=== PATIENT | female | born 1965 | race Caucasian/White ===

== ENCOUNTER 2020-09-06 11:54 | Emergency (ER) | payer OTHER, SELFPAY ==
--- NOTE | ~2020-09-06 | XR_ITS ---
EXAMINATION: XR tibia fibula LT 2V DATE: 09/06/2020 12:18 INDICATION: Left lower leg pain. TECHNIQUE: 2 views of left tibia and fibula were obtained. COMPARISON: None. FINDINGS: Bone alignment is normal. No fracture. There is mild osteoarthritis of medial compartment o f the knee characterized by tiny marginal osteophytes. IMPRESSION: 1. Mild left knee osteoarthritis. Reviewed, dictated and finalized at location A.
--- NOTE | 2020-09-06 11:59 | ED.EXTPRO ---
HPI - Extremity Problem General Chief complaint: Extremity Problem,Nontraumatic Stated complaint: L LEG SWELLING/FOOT SWELLLING/TOE TURNING PURPLE Time Seen by Provider: 09/06/20 11:59 Source: patient and RN notes reviewed History of Present Illness HPI Narrative: Patient is a 54-year-old female who presents the urgent care with complaints of swollen left lower leg, extending into the left foot, with bruising to the left great toe. Patient states that she noticed the left leg swelling approximately 3 weeks ago and woke up with the bruise great toe this morning. Patient denies of any known injury or fall. States that she has been doing some walking since losing her job not too long ago. Otherwise patient does live a pretty sedentary lifestyle. Denies of any history of blood clots. Denies of recent flying. Denies of any calf pain. Denies of shortness of breath or chest pain. Patient has not done anything [id number] for her symptoms and states that she is having no pain at rest. However with ambulation, reports of pain to the distal tib-fib region. No other acute complaints. No acute distress noted. Patient aware of the plan of care. Some parts of this dictation were generated by voice recognition software and may contain typographical and/or grammatical inaccuracies. Related Data Home Medications Medication Instructions Recorded Confirmed alendronate mg PO 09/06/20 carbamazepine 09/06/20 Allergies Allergy/AdvReac Type Severity Reaction Status Date / Time NKDA Allergy Mild Uncoded 03/25/09 10:19 Review of Systems Review of Systems: Narrative: CONSTITUTIONAL: Denies fever, chills, or sweats. EYES: Denies visual changes, redness, or discharge. ENT: Denies rhinorrhea, congestion, sore throat, or otalgia. CARDIOVASCULAR: Denies chest pain, palpitations, or edema. RESPIRATORY: Denies cough or dyspnea. GASTROINTESTINAL: Denies abdominal pain, nausea, vomiting, or diarrhea. GENITOURINARY: Denies dysuria or hematuria. SKIN: Denies rash or itching. MUSCULOSKELETAL: Reports of left lower extremity swelling with bruised left great toe NEUROLOGIC: Denies headache, numbness, or weakness. All other systems reviewed are negative, except as documented in HPI. [facility] Family History Family History (Updated 11/08/15 @ 23:19 by DOCTOR UNKNOWN) Mother Family history of lung cancer Grandparent Family history of malignant neoplasm of breast Social History Social History Alcohol intake: current Comments At the time of my signature, I reviewed and agree with the nursing past medical, surgical, social, and family history. There is no relevant family history pertinent to the patient complaint. Exam Narrative: Exam Narrative: GENERAL: This is a well-nourished, well-developed patient, in no apparent distress. HEAD: normocephalic, atraumatic. EYES: PERRL. Sclera clear/white. Vision is grossly intact. EARS: External ears normal NOSE: External nose normal with no obvious nasal discharge, nares without redness, no rhinorrhea. THROAT: Mucous membranes moist NECK: Neck supple CARDIOVASCULAR: Regular rate and rhythm without murmurs, gallops, or rubs. RESPIRATORY: Clear to auscultation. Breath sounds equal bilaterally. No wheezes, rales, or rhonchi. SKIN: warm, intact with no suspicious lesions or rash, good texture and turgor. NEURO: awake, alert, and oriented to person, place and time. There were no obvious focal neurologic abnormalities. EXTREMITIES: Right and left calf measuring 13 inches. 1+ dependent edema to left lower extremity/foot. Positive strong left pedal pulse with capillary refill less than 2 seconds. Mild ecchymosis noted to the left great toe without any notable deformity. Negative left Homans' sign. Pain to the left distal tib-fib on foot flexion. Course Vital Signs Vital signs: Vital Signs Temperature 97.1 F L 09/06/20 12:08 Pulse Rate 80 09/06/20 12:08 Respiratory Rate 18 09/06/20 12:08
[2020-09-06 12:08] VITALS: BP 155/77; PULSE 80; RESP 18; TEMP 36.2; O2SAT 99
== END 2020-09-06 12:45 | disposition home or self-care (01) ==
PROVIDERS: Emergency Provider Nurse Practitioner Family
DX: R60.0 Localized edema (principal)
CPT/HCPCS: 73590; 99213; G0463

== ENCOUNTER → 2021-06-07 10:03 | Outpatient (CLI) | payer BC, SELFPAY ==
--- NOTE | ~2021-06-07 | MM_ITS ---
EXAMINATION: MM screening [facility] BI w rloan HISTORY: Screening mammogram, family history of breast cancer in her mother. TECHNIQUE: Craniocaudal and mediolateral oblique 3-D tomosynthesis images were obtained and synthetic 2-D images were generated. CAD analysis was submitted and interpreted. COMPARISON: 04/10/2019, 02/27/2019, 09/11/2017 BREAST PARENCHYMAL COMPOSITION: There are scattered areas of fibroglandular density. FINDINGS: There is no evidence of suspicious mass, calcification, or architectural distortion to sugg est malignancy in either breast. There has been no suspicious interval change. IMPRESSION: 1. No mammographic evidence of malignancy. 2. Recommend routine screening mammography in one year. BI-RADS Category 1: Negative Reviewed, dictated and finalized at location A. [employer]
== END ==
PROVIDERS: PCP Nurse Practitioner; Visit Provider Nurse Practitioner
DX: Z12.31 Encounter for screening mammogram for malignant neoplasm of breast (principal)
CPT/HCPCS: 77063; 77067

== ENCOUNTER → 2021-07-03 18:06 | Outpatient (CLI) | payer BC, SELFPAY ==
--- NOTE | ~2021-07-03 | DEXA_ITS ---
Bone Density Report Name: YEN HERNANDEZ Age: 55 Sex: Female Ethnicity: White Date of : 1965 Indication: osteopenia; monitoring treatment; height loss; seizure disorder; postmenopausal Referring Provider: BONI, NAOMY Study: Bone densitometry was performed. Exam Date: July 03, 2021 Accession number: [id number] Bone Density: Region BMD T-score Z-score Classification AP Spine (L1-L4) 0.873 -1.6 -0.4 Osteopenia Femoral Neck (Left) 0.713 -1.2 -0.1 Osteopenia Total Hip (Left) 0.801 -1.2 -0.4 Osteopenia Femoral Neck (Right) 0.696 -1.4 -0.3 Osteopenia Total Hip (Right) 0.789 -1.3 -0.5 Osteopenia Total Hip Mean 0.795 -1.3 -0.5 Osteopenia World Health Organization criteria for BMD impression classify patients as: Normal (T-score at or above -1.0), Osteopenia (T-score between -1.0 and -2.5), or Osteoporosis (T-score at or below -2.5). 10-year Fracture Risk: FRAX not reported because: Treated for osteoporosis Previous Exams: Region Exam Age BMD T-score BMD Change BMD Change Date g/cm2 vs Baseline vs Previous AP Spine(L1-L4) 07/03/2021 55 0.873 -1.6 -0.113* -0.102* 02/27/2019 53 0.975 -0.7 -0.011 0.016 05/02/2016 50 0.959 -0.8 -0.027* -0.027* 07/24/2009 43 0.986 -0.6 Total Hip(Left) 07/03/2021 55 0.801 -1.2 -0.026 0.019 02/27/2019 53 0.782 -1.3 -0.045* 0.023 05/02/2016 50 0.759 -1.5 -0.068* -0.068* 07/24/2009 43 0.827 -0.9 Total Hip(Right) 07/03/2021 55 0.789 -1.3 -0.014 0.016 02/27/2019 53 0.772 -1.4 -0.030* 0.003 05/02/2016 50 0.769 -1.4 -0.034* -0.034* 07/24/2009 43 0.803 -1.1 *Denotes significance at 95% confidence level, LSC for AP Spine = 0.022 g/cm2, LSC for Total Hip = 0.027 g/cm2 Clinical Information Provided by Patient: Is being treated for osteoporosis Has used the following medications: Fosamax (i.e. alendronate), Vitamin D, DEPO SHOT Has the following medical conditions: Any Seizure Disorders Patient maximum height was 65 Menopause Age: 50 Drinks caffeinated beverages Onset of menses at age 11 Number of children 0 Missed period for more than 6 months in a row Impression: The patient has low bone mass, based on the Total Spine T-score. The BMD for the AP Spine(L1-L4) decreased, changing by -0.102 since the last DXA exam.
== END ==
PROVIDERS: Visit Provider Nurse Practitioner
DX: M85.88 Other specified disorders of bone density and structure, other site (principal); M85.852 Other specified disorders of bone density and structure, left thigh; M85.851 Other specified disorders of bone density and structure, right thigh
CPT/HCPCS: 77080

== ENCOUNTER → 2022-08-15 11:15 | Outpatient (CLI) | payer SELFPAY ==
--- NOTE | ~2022-08-15 | MM_ITS ---
EXAMINATION: MM screening [facility] BI w rolan HISTORY: Screening mammogram TECHNIQUE: Craniocaudal and mediolateral oblique 3-D tomosynthesis images were obtained and synthetic 2-D images were generated. CAD analysis was submitted and interpreted. COMPARISON: 06/07/2021, 04/10/2019, 02/27/2019 BREAST PARENCHYMAL COMPOSITION: There are scattered areas of fibroglandular density. FINDINGS: No suspicious mass, calcification, or architectural distortion are identified in either amrit ast to suggest malignancy. There has been no suspicious interval change. IMPRESSION: 1. No mammographic evidence of malignancy. 2. Recommend routine screening mammography in one year. BI-RADS Category 1: Negative Reviewed, dictated and finalized at location A.
== END ==
PROVIDERS: PCP Obstetrics & Gynecology Gynecology; Visit Provider Obstetrics & Gynecology Gynecology
DX: Z12.31 Encounter for screening mammogram for malignant neoplasm of breast (principal)
CPT/HCPCS: 77063; 77067

== ENCOUNTER 2023-11-06 10:46 | Outpatient (CLI) | payer BC, SELFPAY ==
--- NOTE | ~2023-11-06 | MM_ITS ---
EXAMINATION: MM screening ursula BI w rolan HISTORY: Screening mammogram, family history of breast cancer in her mother. TECHNIQUE: Craniocaudal and mediolateral oblique 3-D tomosynthesis images were obtained and synthetic 2-D images were generated. CAD analysis was submitted and interpreted. COMPARISON: 08/15/2022, 06/07/2021, 04/10/2019 BREAST PARENCHYMAL COMPOSITION:Not Dense. There are scattered areas of fibroglandular density. FINDINGS: No suspicious mass, calcification, or architectural distortion are identified in either amrit ast to suggest malignancy. There has been no suspicious interval change. IMPRESSION: No mammographic evidence of malignancy. Recommend routine screening mammography in one year. BI-RADS Category 1: Negative Reviewed, dictated and finalized at location .
== END 2023-11-06 10:47 ==
PROVIDERS: PCP Obstetrics & Gynecology Gynecology; Visit Provider Obstetrics & Gynecology Gynecology
DX: Z12.31 Encounter for screening mammogram for malignant neoplasm of breast (principal)
CPT/HCPCS: 77063; 77067

== ENCOUNTER 2024-02-09 11:08 | Emergency (ER) | payer BC, SELFPAY ==
[2024-02-09 11:30] VITALS: BP 113/78; PULSE 70; RESP 16; TEMP 36.6; O2SAT 99
--- NOTE | 2024-02-09 12:02 | ED.EYEPROB ---
HPI - Eye Problem General Chief complaint: Eye Problems Stated complaint: Rt Eye Irritation Time Seen by Provider: 02/09/24 12:02 Source: patient Mode of arrival: ambulatory Limitations: no limitations History of Present Illness HPI Narrative: 58 yo F presents with c/o redness, swelling to R upper eyelid for 4 to 5 days. Tender on palpation. Also reports itchy spot to R forearm. Initially thought she had a bug bite 3 wks ago. Has been intermittently applying neosporin past several weeks. All systems reviewed and negative except as noted above. Related Data Home Medications Medication Instructions Recorded Confirmed carbamazepine 200 mg tablet 400 mg PO TID 09/06/20 02/09/24 cholecalciferol (vitamin D3) 25 25 mcg PO DAILY 10/17/21 02/09/24 mcg (1,000 unit) capsule amlodipine 10 mg tablet 5 mg PO DAILY 02/09/24 02/09/24 finasteride 5 mg tablet 5 mg PO DAILY 02/09/24 02/09/24 spironolactone 50 mg tablet 150 mg PO DAILY 02/09/24 02/09/24 Allergies Allergy/AdvReac Type Severity Reaction Status Date / Time No Known Drug Allergies Allergy Unknown Verified 02/09/24 11:42 Review of Systems Review of Systems: CONSTITUTIONAL: Denies fever, chills, or sweats. EYES: Denies visual changes, redness, or discharge. Reports redness, swelling, tenderness to right upper eyelid. ENT: Denies rhinorrhea, congestion, sore throat, or otalgia. CARDIOVASCULAR: Denies chest pain, palpitations, or edema. RESPIRATORY: Denies cough or dyspnea. GASTROINTESTINAL: Denies abdominal pain, nausea, vomiting, or diarrhea. GENITOURINARY: Denies dysuria or hematuria. SKIN: Denies rash. Reports skin discoloration, itching right forearm. MUSCULOSKELETAL: Denies back pain, joint pain, or myalgia. NEUROLOGIC: Denies headache, numbness, or weakness. PSYCHIATRIC: Denies anxiety or depression. All other systems reviewed are negative, except as documented in HPI. [facility] Family History Family History (Updated 11/08/15 @ 23:19 by DOCTOR UNKNOWN) Mother Family history of lung cancer Grandparent Family history of malignant neoplasm of breast Social History Social History Alcohol intake: current Comments At time of signature, agree with nursing past medical, surgical, social and family history. There is no relevant family history pertinent to the presenting complaint. Exam Narrative: GENERAL: This is a well-nourished, well-developed patient, in no apparent distress. HEAD: normocephalic, atraumatic. EYES: PERRL. Sclera clear/white. Vision is grossly intact. Stye to right upper eyelid. Internal pustule noted to right upper eyelid. Erythema and swelling to external aspect of right upper eyelid. EARS: External ears normal THROAT: Mucous membranes moist, posterior pharynx clear. NECK: Neck supple, non-tender without lymphadenopathy, masses or thyromegaly. CARDIOVASCULAR: Regular rate and rhythm without murmurs, gallops, or rubs. RESPIRATORY: Clear to auscultation. Breath sounds equal bilaterally. No wheezes, rales, or rhonchi. SKIN: warm, Dry, intact with no suspicious rash, good texture and turgor. Erythematous scaly 1-2 cm hyperpigmented patches of skin to posterior aspect right forearm. NEURO: awake, alert, and oriented to person, place and time. There were no obvious focal neurologic abnormalities. EXTREMITIES: No joint tenderness, effusion, or edema noted. Course Course Level of Care: Express Care Visit Vital Signs Vital signs: Vital Signs Temperature 36.6 C 02/09/24 11:30 Pulse Rate 70 02/09/24 11:30 Respiratory Rate 16 02/09/24 11:30 Blood Pressure 113/78 02/09/24 11:30 Pulse Oximetry 99 02/09/24 11:30 Temperature 36.6 C 02/09/24 11:30 Pulse Rate 70 02/09/24 11:30 Respiratory Rate 16 02/09/24 11:30 Blood Pressure 113/78 02/09/24 11:30 Pulse Oximetry 99 02/09/24 11:30 Reviewed MDM - Eye Problem MDM Narrative Medical decision making narrative: Patient is aware of diagnosis, understands and agrees to treatment plan. Anticipatory guidance given. Patient agrees to follow-up as directed and is aware of reasons to seek care at the emergency department. Portions of this record may have been created with voice recognition software Discharge Plan Discharge Clinical Impression: Hordeolum internum of right upper eyelid, Contact dermatitis and eczema Patient Disposition: Home, Self-Care Condition: Stable Instructions: Antibiotic Form, Erythromycin (Into the eye), Stye (ED) Additional Instructions: Use medications as prescribed. Read over discharge instructions on how to place erythromycin ointment into eye. Place a warm compress to right upper eyelid and gently massage for 10 minutes 4 times a day. Apply steroid cream sparingly with Vaseline to right forearm. Follow-up with your primary care physician if symptoms are not improving. Prescriptions: New erythromycin 5 mg/gram (0.5 %) ointment 1 applic RIGHT EYE QID 10 Days Qty: 3.5 0RF triamcinolone acetonide 0.1 % cream 1 applic topical BID PRN (Reason: Contact dermatitis) Qty: 15 0RF No Action carbamazepine 200 mg tablet 400 mg PO TID amlodipine 10 mg tablet 5 mg PO DAILY finasteride 5 mg tablet 5 mg PO DAILY spironolactone 50 mg tablet 150 mg PO DAILY cholecalciferol (vitamin D3) 25 mcg (1,000 unit) Capsule 25 mcg PO DAILY Follow-up/Referrals: Jessica Andrew MD [Primary Care Provider] - Time of Disposition: 12:13
== END 2024-02-09 12:16 | disposition home or self-care (01) ==
PROVIDERS: Emergency Provider Nurse Practitioner Family; PCP Internal Medicine
DX: H00.021 Hordeolum internum right upper eyelid (principal); L30.9 Dermatitis, unspecified; G40.909 Epilepsy, unspecified, not intractable, without status epilepticus; I10 Essential (primary) hypertension
CPT/HCPCS: 99213; G0463

== ENCOUNTER 2024-10-25 13:55 | Outpatient (CLI) | payer OTHER, SELFPAY ==
--- NOTE | ~2024-10-25 | DEXA_ITS ---
Bone Density Report Name: YEN HERNANDEZ Age: 58 Sex: Female Ethnicity: White Date of : 1965 Indication: postmenopausal; screening for osteoporosis; height loss; seizure disorder; Referring Provider: BRIAN CORTEZ Study: Bone densitometry was performed. Exam Date: October 25, 2024 Accession number: [id number] Bone Density: Region BMD T-score Z-score Classification AP Spine(L1-L4) 0.845 -1.8 -0.4 Osteopenia Femoral Neck (Left) 0.705 -1.3 0.0 Osteopenia Total Hip (Left) 0.839 -0.8 0.1 Normal Femoral Neck (Right) 0.652 -1.8 -0.5 Osteopenia Total Hip (Right) 0.805 -1.1 -0.2 Osteopenia Total Hip Mean 0.822 -1.0 -0.1 Normal World Health Organization criteria for BMD impression classify patients as: Normal (T-score at or above -1.0), Osteopenia (T-score between -1.0 and -2.5), or Osteoporosis (T-score at or below -2.5). 10-year Fracture Risk(1): Major Osteoporotic Fracture 8.5% Hip Fracture 0.8% Reported Risk Factors: [place] (), Neck BMD=0.652, BMI=28.1 (1) FRAX(R) Version 3.08. Fracture probability calculated for an untreated patient. Fracture probability may be lower if the patient has received treatment. Clinical Information Provided by Patient: Has used the following medications: Vitamin D Has the following medical conditions: Any Seizure Disorders Patient maximum height was 65.0 Menopause Age: 50 No regular weight bearing exercise Drinks caffeinated beverages Onset of menses at age 11 Number of children 0 Missed period for more than 6 months in a row Impression: The patient has low bone mass, based on the Total Spine T-score. The patient has an estimated ten-year risk of hip fracture of 0.8% and an estimated ten-year risk of major fracture of 8.5%, based on the WHO FRAX algorithm. Discussion: BONE DENSITY IS LOW AT ONE OR MORE SKELETAL SITES. This patient's lowest T-score is low at one or more skeletal sites. It meets the World Health Organization's (WHO) criteria for ?low bone mass? (T-score between -1.0 and -2.5). The patient's 10-year risk of fracture as calculated by FRAX is less than the threshold where pharmacological therapy is recommended by the National Osteoporosis Foundation (NOF). However, all treatment decisions require clinical judgment and consideration of individual patient factors, including patient preferences, comorbidities, previous drug use, risk factors not captured in the FRAX model (e.g., frailty, falls, vitamin D deficiency, increased bone turnover, interval significant decline in bone density) and possible under or overestimation of fracture risk by FRAX. The patient should follow a healthful lifestyle (good nutrition with adequate calcium and vitamin D, and appropriate weight-bearing exercise). Follow-Up: Consider repeating this study in 2 to 3 years to reassess this patient's status, or sooner if there is some new clinical indication. Reported by: DESTINI on 10/25/2024 2:37:00 PM. Reviewed, dictated and finalized at location A.
--- OUTSIDE RECORDS SUMMARY | 2024-10-25 14:03 | XMS_ITS | Clinical Summary ---
Author Organization [facility] Address [facility] [place] [address] Care Team Providers Care City Sanitarian Name Role Phone BaileeSussy huffman Meet NEONATAL CRITICAL CARE NURSE Primary Care Provider [phone] Allergies No known active allergies Medications finasteride (PROSCAR) 5 MG tablet Take 1 tablet (5 mg total) by mouth daily. 04/15/19 24 Active Cholecalciferol (SM VITAMIN D3) 100 MCG (4000 UT) Cap 08/24/19 25 Active Minoxidil (ROGAINE) 2 % Solution Active olmesartan (BENICAR) 20 MG tabletIndication s:Primary hypertension Take 1 tablet (20 mg total) by mouth daily. 30 tablet 2 10/05/19 25 Active amLODIPine (NORVASC) 5 MG tabletIndication s:Primary hypertension Take 0.5 tablets (2.5 mg total) by mouth daily. 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 180 capsule 2 08/02/19 25 025 Discontinued(Re order) spironolactone (ALDACTONE) 50 MG tablet Take 2 tablets (100 mg total) by mouth daily. 08/24/19 25 025 Discontinued amLODIPine (NORVASC) 5 MG tabletIndication s:Primary hypertension Take 1 tablet (5 mg total) by mouth daily. 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 [facility] [address] [place] [address] Sussy Morocho, NEONATAL CRITICAL CARE NURSE Results 10/04/2024 Travel 09/12/2024 Results Follow-Up [facility] [place] [address] [facility] [address] [place] [address] Sussy Morocho, NEONATAL CRITICAL CARE NURSE BASIC METABOLIC PANEL, SODIUM URINE RANDOM, OSMOLALITY, URINE 09/06/2024 Orders Only [place] [address] [facility] [address] [place] [address] Sussy Morocho, NEONATAL CRITICAL CARE NURSE 09/05/2024 Results Follow-Up [facility] [place] [address] [address] [facility] [address] [place] [address] Sussy Morocho, NEONATAL CRITICAL CARE NURSE CBC W/DIFF AUTOMATED, COMPREHENSIVE METABOLIC PANEL, LIPID PANEL, Additional followed-up results: 4 09/05/2024 [facility] [address] [address] [facility] [address] [place] [address] Sussy Morocho, NEONATAL CRITICAL CARE NURSE Lab Results 09/04/2024 Telephone [facility] Family Medicine [address] [address] Katarina Alexander MD Lab Results 08/24/2024 [facility] [address] [place] [address] Sussy Morocho, DIXIE Record Request 08/23/2024 3:20 PM CDT [facility] [address] [place] [address] Sussy Morocho NP New Patient 08/23/2024 Travel 08/01/2024 Orders Only [address], [address] [place] [address] Bailey Delcid MA 08/01/[address], [address] [place] [address] Diane Tena MD Medication from Last 3 Months Family History Medical History Relation Comments Heart Disease Father Breast Cancer Mother Heart Disease Mother Lung Cancer Mother Relation Status Comments Father Mother Social History Tobacco Use Types Packs/Day Years Used Date Smoking Tobacco: Former Cigarettes 0.3 35 1 984 - 2019 Smokeless Tobacco: Never Tobacco Cessation:Counseling Given: No Alcohol Use Standard Drinks/Week Comments Yes 0 (1 standard drink = 0.6 oz pur e alcohol) social PHQ-2 Answer Date Recorded Patient Health Questionnaire-2 Score 0 08/23/2024 Comments Unknown Sex and Gender Information Value Date Recorded Sex Assigned at Female 08/23/2024 3:40 PM CDT Legal Sex Female 7:06 PM CDT Gender Identity Female 08/23/2024 3:40 PM CDT Sexual Orientation Not on file Last Filed Vital Signs Vital Sign Reading Time Taken Comments Blood Pressure 130/82 10/04/2024 4:46 PM CDT Pulse 58 10/04/2024 4:23 PM CDT Temperature 36.7 C (98.1 F) 10/04/2024 4:23 PM CDT Respiratory Rate 18 10/04/2024 4:23 PM CDT Oxygen Saturation 98% 10/04/2024 4:23 PM CDT Inhaled Oxygen Concentration - - Weight 72 kg (158 lb 12.8 oz) 10/04/2024 4:23 PM CDT Height 160 cm (5' 3) 10/04/2024 4:23 PM CDT Body Mass Index 28.13 10/04/2024 4:23 PM CDT Plan of Treatment Upcoming Encounters Date Type Department Care Team (Late st Contact Info) Description 11/08/2024 2:20 PM CDT [facility] [address] [facility], [address] [place] [address] Diane Tena MD [address] [place] [address] 11/09/2024 2:00 PM CDT [facility] [address] [place] [address] Sussy Morocho, NEONATAL CRITICAL CARE NURSE [address] [place], [place] [id number] Health Maintenance Due Date Last Done Comments Annual Physical 12/19/1967 DTaP, Tdap and Td Vaccines ( 1 - Tdap) 12/19/1983 Cervical Cancer Screening Pa p with HPV Testing (Age 30 to 64) Every 5 Years 1994 Mammogram Screening 2004 Pneumococcal Vaccine: 50+ Years (1 of 1 - PCV) 2014 Zoster Vaccines (1 of 2) 2014 COVID-19 Vaccine (2023-2 5 season) 2023 07/29/2020, 07/08/2020 Cervical Cancer Screening Pa p Smear (Age 30 to 64) Every 3 Years 03/14/2027 03/14/2024 Cervical Cancer Screening wi th HPV 03/14/2027 Colorectal Cancer Screening Colonoscopy (10 Years) 04/01/2027 04/01/2017 PHQ-2 (Physician [place]) Completed 08/23/2024 Hepatitis C Completed 09/02/2024 Meningococcal B Vaccine Aged Out No l onger eligible based on patient's age to complete this topic Meningococcal Vaccine Aged Out No jennifer gilma eligible based on patient's age to complete this topic RSV Immunizations Under 20 Months Aged Out No longer eligible b ased on patient's age to complete this topic Procedures Procedure Name Priority Date/Time Associated Diagnosis Comments OSMOLALITY, URINE Routine 09/06/2024 2:4 4 PM CDT SODIUM URINE RANDOM Routine 09/06/2024 2 :44 PM CDT BASIC METABOLIC PANEL Routine 09/06/2024 2:44 PM CDT ALBUMIN URINE RANDOM W/CREATININE Routine 09/02/2024 9:33 AM CDT Protein screening HEMOGLOBIN, GLYCOSYLATED Routine 09/02/2024 9:33 AM CDT Screening for diabetes mellitus HEPATITIS C ANTIBODY W/RFX TO HCV RNA Routine 09/02/2024 9:33 AM CDT Need for hepatitis C screening test TSH W/REFLEX Routine 09/02/2024 9:33 AM CDT Routine general medical examination at a health care facility LIPID PANEL Routine 09/02/2024 9:33 AM CDT Routine general medical examination at a health care facility COMPREHENSIVE METABOLIC PANEL Routine 09/02/2024 9:33 AM CDT Routine general medical examination at a health care facility Primary hypertension CBC W/DIFF AUTOMATED Routine 09/02/2024 9:33 AM CDT Routine general medical examination at a health care facility Primary hypertension OUTSIDE CYTOPATH CERV/VAG INTERPRET (PAP) (SCAN ORDER) 03/14/2024 COLONOSCOPY GENERIC (SCAN ORDER) 04/01/2017 from Last 3 Months or Most Recently Relevant to Health Maintenance Results * SODIUM URINE RANDOM (09/06/2024 2:44 PM CDT) NA RANDOM (U) 62 28 - 272 mmol/L [facility] 09/06/2024 2:44 PM CDT 09/06/2024 2:44 PM CDT Narrative Resulting Agency Comment Performing Organization Information: Site ID: [id number] Name: [facility] Address: [address] [place] [phone] Director: Shai Craft MD Sussy Morocho NP URINE ORDERABLES Final Resu lt [facility] - [place] [facility] [address] [address], * (ABNORMAL) BASIC METABOLIC PANEL (09/06/2024 2:44 PM CDT) GLUCOSE 83 65 - 99 mg/dL [facility] Comment: Fasting reference interval BUN 16 7 - 25 mg/dL [facility] CREATININE S/P/B 0.64 0.50 - 1.03 mg/dL [facility] GFR ESTIMATE 102 > OR = 60 mL/min/1. 73m2 [facility] BUN CREATININE RATIO SEE NOTE: 6 - 22 (calc) [facility] Comment: Not Reported: BUN and Creatinine are within reference range. SODIUM S/P/B 128(L) 135 - 146 mmol/L [facility] POTASSIUM S/P/B 4.1 3.5 - 5.3 mmol/L [facility] CHLORIDE S/P/B 94(L) 98 - 110 mmol/L [facility] CO2 26 20 - 32 mmol/L [facility] CALCIUM S/P/B 9.1 8.6 - 10.4 mg/dL [facility] 09/06/2024 2:44 PM CDT 09/06/2024 2:44 PM CDT Narrative Resulting Agency Comment Performing Organization Information: Site ID: [email or web address] Name: [email or web address] [facility] Address: [address] [place] [phone] Director: Shai Craft MD Sussy N Bailee NEONATAL CRITICAL CARE NURSE LABORATORY Final Resul t Performing Organization Address City/[facility]/ZIP Co de Phone Number [facility] [place] [facility] [facility] [address] [place] [address], * OSMOLALITY, URINE (09/06/2024 2:44 PM CDT) OSMOLALITY (U) 459 50 - 1,200 mOsm/kg [facility] 09/06/2024 2:44 PM CDT 09/06/2024 2:44 PM CDT Narrative Resulting Agency Comment Performing Organization Information: Site ID: [id number] Name: [facility] Address: [address] [place] [phone] Director: Shai Crfat MD Sussy Morocho NP URINE ORDERABLES Final Resu lt Performing Organization Address [facility] Co de Phone Number [facility] [id number] [place] [phone], [place] * HEPATITIS C ANTIBODY W/RFX TO HCV RNA (09/02/2024 9:33 AM CDT) Pathologist [facility] HEPATITIS C AB NON-REACT JS NON-REACT JS [facility] Comment: HCV antibody was non-reactive. There is no laboratory evidence of HCV infection. In most cases, no further action is required. However, if recent HCV exposure is suspected, a test for HCV RNA (test code 60034) is suggested. For additional information please refer to http://education.in[employer]/faq/BBE34l0 (This link is being provided for informational/ educational purposes only.) 09/02/2024 9:33 AM CDT 09/02/2024 9:34 AM CDT Narrative [facility] - [place] - 09/04/2024 12:14 PM CDT FASTING:YES FASTING: YES Resulting Agency Comment Performing Organization Information: Site ID: [id number] Name: [facility] Address: [address] [place] [phone] Director: Shai Craft MD Sussy Morocho NP LABORATORY Final Resul t Performing Organization Address [facility] Co de Phone Number [facility] [id number] [place] [phone], * TSH W/REFLEX (09/02/2024 9:33 AM CDT) Pathologist [facility] TSH 1.49 0.40 - 4.50 mIU/L [facility] 09/02/2024 9:33 AM CDT 09/02/2024 9:34 AM CDT Narrative [facility] [place] [facility] - 09/04/2024 12:14 PM CDT FASTING:YES FASTING: YES Resulting Agency Comment Performing Organization Information: Site ID: [id number] Name: [facility] Address: [address] [place] [phone] Director: Shai Craft MD Sussy Morocho NP LABORATORY Final Resul t Performing Organization Address [facility] de Phone Number [facility] [address] [address], * HEMOGLOBIN, GLYCOSYLATED (09/02/2024 9:33 AM CDT) Pathologist [facility] HGB A1C 5.5 <5.7 % of total Hgb [facility] [place] Comment: For the purpose of screening for the presence of diabetes: <5.7% Consistent with the absence of diabetes 5.7-6.4% Consistent with increased risk for diabetes (prediabetes) > or =6.5% Consistent with diabetes This assay result is consistent with a decreased risk of diabetes. Currently, no consensus exists regarding use of hemoglobin A1c for diagnosis of diabetes in children. According to [place] Diabetes Association (ADA) guidelines, hemoglobin A1c <7.0% represents optimal control in non- diabetic patients. Different metrics may apply to specific patient populations. Standards of Medical Care in Diabetes(ADA). 09/02/2024 9:33 AM CDT 09/02/2024 9:34 AM CDT Narrative [facility] [place] - 09/04/2024 12:14 PM CDT FASTING:YES FASTING: YES Resulting Agency Comment Performing Organization Information: Site ID: [facility]: [facility] Address: [address] [place] [address] Director: Shai Craft Sussy Morocho NP LABORATORY Final Resul t Performing Organization Address [facility] Co de Phone Number [facility] [place] [facility], [place] [id number] [place] [phone], [place] * ALBUMIN URINE RANDOM W/CREATININE (09/02/2024 9:33 AM CDT) CREATININE RANDOM (U) 47 20 - 275 mg/dL [facility] MICROALBUMIN (U) 0.2 See Note: mg/dL [facility] Comment: Reference Range: Reference Range Not established MICROALB/CREAT 4 <30 mg/g creat [facility] Comment: The ADA defines abnormalities in albumin excretion as follows: Albuminuria Category Result (mg/g creatinine) Normal to Mildly increased <30 Moderately increased 30-299 Severely increased > OR = 300 The ADA recommends that at least two of three specimens collected within a 3-6 month period be abnormal before considering a patient to be within a diagnostic category. URINE SPECIMEN / Unknown 09/02/2024 9:33 AM CDT 09/02/2024 9:34 AM CDT Narrative [facility] [place] [facility] - 09/04/2024 12:14 PM CDT FASTING:YES FASTING: YES Resulting Agency Comment Performing Organization Information: Site ID: ID Name: InterviewNilesh Address: [address] [place] [address] Director: Shai Craft MD Sussy Morocho NP URINE ORDERABLES Final Resu lt Performing Organization Address [facility] Co de Phone Number [facility] [place] [facility] [address] [place] [address], * (ABNORMAL) COMPREHENSIVE METABOLIC PANEL (09/02/2024 9:33 AM CDT) GLUCOSE 83 65 - 99 mg/dL [facility] Comment: Fasting reference interval BUN 8 7 - 25 mg/dL [facility] CREATININE S/P/B 0.60 0.50 - 1.03 mg/dL [facility] GFR ESTIMATE 103 > OR = 60 mL/min/1. 73m2 [facility] BUN CREATININE RATIO SEE NOTE: 6 - 22 (calc) [facility] Comment: Not Reported: BUN and Creatinine are within reference range. SODIUM S/P/B 118(LL) 135 - 146 mmol/L [facility] Comment: Verified by repeat analysis. POTASSIUM S/P/B 4.4 3.5 - 5.3 mmol/L [facility] CHLORIDE S/P/B 87(L) 98 - 110 mmol/L [facility] CO2 27 20 - 32 mmol/L [facility] CALCIUM S/P/B 8.4(L) 8.6 - 10.4 mg/dL [facility] TOTAL PROTEIN S/P/B 6.3 6.1 - 8.1 g/dL [facility] ALBUMIN S/P/B 4.0 3.6 - 5.1 g/dL [facility] GLOBULIN 2.3 1.9 - 3.7 g/dL (calc) [facility] ALBUMIN/GLOBULI N RATIO 1.7 1.0 - 2.5 (calc) [facility] BILIRUBIN TOTAL S/P/B 0.4 0.2 - 1.2 mg/dL [facility] ALKALINE PHOSPHATASE S/P/B 73 37 - 153 U/L [facility] AST 15 10 - 35 U/L [facility] ALT 10 6 - 29 U/L [facility] 09/02/2024 9:33 AM CDT 09/02/2024 9:34 AM CDT Narrative [facility] [place] [facility] - 09/04/2024 12:14 PM CDT FASTING:YES FASTING: YES Resulting Agency Comment Performing Organization Information: Site ID: ID Name: InterviewLudy Address: [address] [address] Director: Shai Craft MD Sussy Morocho NP LABORATORY Final [facility] t [facility] [address] [address] [facility] [place] [id number], * (ABNORMAL) LIPID PANEL (09/02/2024 9:33 AM CDT) CHOLESTEROL 221(H) <200 mg/dL [facility] HDL 90 > OR = 50 mg/dL [facility] TRIGLYCERIDES 55 <150 mg/dL [facility] LDL (CALCULATED) 116(H) mg/dL (calc) [facility] Comment: Reference range: <100 Desirable range <100 mg/dL for primary prevention; <70 mg/dL for patients with CHD or diabetic patients with > or = 2 CHD risk factors. LDL-C is now calculated using the Ricky calculation, which is a validated novel method providing better accuracy than the Friedewald equation in the estimation of LDL-C. Dejon BANKS et al. WARREN. 2013;310(19): 6978-2727 (http://education.MyWebzz/faq/WRF490) CHOL/HDL RATIO 2.5 <5.0 (calc) [facility] NON HDL CHOLESTEROL 131(H) <130 mg/dL (calc) [facility] Comment: For patients with diabetes plus 1 major ASCVD risk factor, treating to a non-HDL-C goal of <100 mg/dL (LDL-C of <70 mg/dL) is considered a therapeutic option. 09/02/2024 9:33 AM CDT 09/02/2024 9:34 AM CDT Narrative [facility] - 09/04/2024 12:14 PM CDT FASTING:YES FASTING: YES Resulting Agency Comment Performing Organization Information: Site ID: ID Name: [facility] Address: [address] [facility] [place] [id number] Director: Shai Craft MD Sussy Morocho NP LABORATORY Final Resul t [facility] [address] [facility] [place] [id number], * (ABNORMAL) CBC W/DIFF AUTOMATED (09/02/2024 9:33 AM CDT) WBC 2.8(L) 3.8 - 10.8 Thousand/ uL [facility] RBC 3.86 3.80 - 5.10 Million/u L [facility] HGB 12.3 11.7 - 15.5 g/dL [facility] HCT 37.0 35.0 - 45.0 % [facility] MCV 95.9 80.0 - 100.0 fL [facility] MCH 31.9 27.0 - 33.0 pg [facility] MCHC 33.2 32.0 - 36.0 g/dL [facility] Comment: For adults, a slight decrease in the calculated MCHC value (in the range of 30 to 32 g/dL) is most likely not clinically significant; however, it should be interpreted with caution in correlation with other red cell parameters and the patient's clinical condition. RDW 12.4 11.0 - 15.0 % [facility] PLT 260 140 - 400 Thousand/ uL [facility] MPV 9.7 7.5 - 12.5 fL [facility] ABS. NEUTROPHILS 1,436(L) 1,500 - 7,800 cells/uL [facility] ABS. LYMPHOCYTES 944 850 - 3,900 cells/uL [facility] ABS. MONOCYTES 361 200 - 950 cells/uL [facility] ABS. EOSINOPHILS 39 15 - 500 cells/uL [facility] ABS. BASOPHILS 20 0 - 200 cells/uL [facility] SEG NEUTROPHILS 51.3 % [facility] LYMPHOCYTES 33.7 % [facility] MONOCYTES 12.9 % [facility] EOSINOPHILS 1.4 % [facility] BASOPHILS 0.7 % [facility] 09/02/2024 9:33 AM CDT 09/02/2024 9:34 AM CDT Narrative [facility] - 09/04/2024 12:14 PM CDT FASTING:YES FASTING: YES Resulting Agency Comment Performing Organization Information: Site ID: ID Name: [email or web address] [facility]an Address: [address] [address] Director: Shai Craft MD Sussy Morocho NP LABORATORY Final Resul t [facility] [place] [facility] [address] [place] [address] [place] [address], [place] * PAP SMEAR (SCAN ORDER) (03/14/2024) 03/14/2024 us [employer] [facility] Scanned SCANNING Final Resu lt * COLONOSCOPY GENERIC (SCAN ORDER) (04/01/2017) 04/01/2017 us [facility] Scanned SCANNING Final Resu lt from Last 3 Months or Most Recently Relevant to Health Maintenance Insurance [facility] AET[employer] Care Teams City Sanitarian Relationship Specialty Start Date End Date Sussy Morocho NP [address] [place] [address] PCP - General NURSE PRACTITIONER 08/23/24
--- OUTSIDE RECORDS SUMMARY | 2024-10-25 14:03 | XMS_ITS | Clinical Summary ---
Author Organization [facility] Address [address], [facility] [address] [place] [address] Phone Care Team Providers Care Order Packer Or Packager Name Role Phone Diane Trent MD Unavailable Provider, Unknown Primary Care Provider Unavaila ble Allergies No known active allergies Medications polyethylene glycol (MIRALAX) Powder Use entire 255g bottle with 64oz of clear liquid as directed for colonoscopy prep. 255 g 7 Active carBAMazepine (TEGRETOL) 200 MG Tablet TAKE 6 & 1/2 TABLETS BY MOUTH DAILY - 2 TABS AT 5AM, 2 TABS AT 11AM, AND 2 & 1/2 TABLS AT BEDTIME 3 7 Active alendronate (FOSAMAX) 70 MG Tablet TAKE 1 TABLET BY MOUTH EVERY WEEK 4 7 Active Cholecalciferol (VITAMIN D3) 5000 units Capsule Take by mouth. Activ e Pfaszwfo-Fta-Oo -FA ( VITAMINS PO) Take by mouth. Ac tive Social History Tobacco Use Types Packs/Day Years Used Date Smoking Tobacco: Every Day Smokeless Tobacco: Never Alcohol Use Standard Drinks/Week Comments Yes 0 (1 standard drink = 0.6 oz pur e alcohol) occasionally Comments Unknown Sex and Gender Information Value Date Recorded Sex Assigned at Not on file Legal Sex Female 7:22 AM CDT Gender Identity Not on file Sexual Orientation Not on file Plan of Treatment Health Maintenance Due Date Last Done Comments Hepatitis C Virus (HCV) Screening 1964 TdaP Immunization 1964 Hepatitis B Immunization (1 of 3 - 19+ 3-dose series) 12/19/1983 Pap Smear 1985 Cervical Cancer Screening (CCS) 1994 HPV/Cotest 1994 Cologuard 2014 Immunochemical Fecal Occult Blood 2014 Mammogram 2014 Pneumococcal Immunization (5 0+ years) (1 of 1 - PCV) 2014 Zoster Immunization (1 of 2) 2014 Colonoscopy 04/01/2022 04/01/2017 Colorectal Cancer Screening 04/01/2022 Influenza Immunization (#1) 2023 SARS-COV-2 Immunization ( - season) 2023 Respiratory Syncytial Virus (RSV) Immunization (Adult) (1 - 1-dose 75+ series) 12/19/2039 Meningococcal Immunization (ACWY) Aged Out No longer eligible based on patient's age to complete this topic Pneumococcal Immunization Combined Aged Out No longer eligible based on patient's age to complete this topic Rotavirus Immunization Aged Out No lo nger eligible based on patient's age to complete this topic Procedures Procedure Name Priority Date/Time Associated Diagnosis Comments COLONOSCOPY Routine 04/01/2017 from Last 3 Months or Most Recently Relevant to Health Maintenance Results * COLONOSCOPY (04/01/2017) us Demetrius T Felix DO PROCEDURE/MINOR SURGICAL ORDERA BLES Final Result from Last 3 Months or Most Recently Relevant to Health Maintenance Care Teams Order Packer Or Packager Relationship Specialty Start Date End Date Provider, Unknown UNKNOWN PCP - General 04/02/17 Diane Trent MD [address] [address] Obstetrics & Gynecology 10/22/16
== END 2024-10-25 13:56 | disposition home or self-care (01) ==
PROVIDERS: PCP Nurse Practitioner; Visit Provider Obstetrics & Gynecology Gynecology
DX: M85.89 Other specified disorders of bone density and structure, multiple sites (principal); Z78.0 Asymptomatic menopausal state
CPT/HCPCS: 77080

== ENCOUNTER 2024-11-11 10:56 | Outpatient (CLI) | payer OTHER, SELFPAY ==
--- NOTE | ~2024-11-11 | MM_ITS ---
EXAMINATION: MM screening ursula BI w rolan HISTORY: Screening TECHNIQUE: Craniocaudal and mediolateral oblique 3-D tomosynthesis images were obtained and synthetic 2-D images were generated. CAD analysis was submitted and interpreted. COMPARISON: Comparison to multiple prior studies sequentially, with oldest reviewed study dated 05/02. BREAST PARENCHYMAL COMPOSITION: There are scattered areas of fibroglandular density. FINDINGS: There is no evidence of suspicious mass, calcification, or architectural distortion to sug gest malignancy in either breast. IMPRESSION: 1. No mammographic evidence of malignancy. 2. Recommend routine screening mammography in one year. BI-RADS Category 1: Negative Reviewed, dictated and finalized at location B.
== END 2024-11-11 10:57 | disposition home or self-care (01) ==
LOC: MICIMG 10:58
PROVIDERS: PCP Obstetrics & Gynecology Gynecology; Visit Provider Obstetrics & Gynecology Gynecology
DX: Z12.31 Encounter for screening mammogram for malignant neoplasm of breast (principal)
CPT/HCPCS: 77063; 77067